=== PATIENT | male | born 1990 | race Caucasian/White ===

== ENCOUNTER 2019-12-22 01:43 | Emergency (ER) | payer SELFPAY ==
[~2019-12-22] VITALS: Ht 180.3 cm; Wt 63.5 kg
[2019-12-22 01:46] VITALS: BP 170/103
--- NOTE | 2019-12-22 01:48 | NUR ---
ED Nurse Note: Patient broughtin by ambulance, RA 61, with complaints of OD. 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 Will continue to monitor for impending orders.
[2019-12-22] MEDS: LORazepam Inj 2mg/ml 1ml IV ONE ×2 (02:17→02:27)
--- NOTE | 2019-12-22 02:27 | NUR ---
ED Nurse Note: Patient refused IV start, will notify ERMD.
[2019-12-22] MEDS ORDERED: LORazepam 1mg tab ORAL ONE (02:45)
--- NOTE | 2019-12-22 03:33 | NUR ---
ED Nurse Note: Patient request clothes, will accomodate request.
--- NOTE | 2019-12-22 04:33 | NUR ---
ED Nurse Note: Patient is sleeping comfortably with no s/s of acute distress. Will continue to monitor for discharge.
--- NOTE | 2019-12-22 05:35 | NUR ---
ED Nurse Note: Patient removed classroom monitor, pulse ox and blood pressure cuff. Cardiac monitoring discontinued.
--- NOTE | 2019-12-22 05:43 | Emergency Room Report ---
History of Present Illness General Chief Complaint: Substance Abuse Source: Patient, EMS Present Illness HPI 29-year-old male presents the ED for overdose. Brought in by EMS from Street. Found with pinpoint pupils. Given Narcan and woke up. Patient found with drug paraphernalia on him including needles. Patient is more alert and oriented now. Admits to crystal meth use. Denies any other drug use. Denies any chest pain or shortness of breath. Denies nausea or vomiting. No other aggravating relieving factors. Denies any other associated symptoms COVID-19 risk:Travel to affect: No Allergies: Coded Allergies: No Known Allergies (Unverified , 12/22/19) Patient History Past Medical History: none Past Surgical History: none Pertinent Family History: none Social History: Reports: drug use; Denies: smoking, alcohol use Immunizations: UTD Reviewed Nursing Documentation: PMH: Agreed; PSxH: Agreed Review of Systems All Other Systems: negative except mentioned in HPI Physical Exam Vital Signs Date Time Temp Pulse Resp B/P (MAP) Pulse Ox O2 Delivery O2 Flow Rate FiO2 12/22/19 01:46 97.2 100 18 170/103 (125) 100 Nasal Cannula 4.0 Sp02 EP Interpretation: reviewed, normal General Appearance: no apparent distress, alert, GCS 15, non-toxic Head: normocephalic, atraumatic Eyes: bilateral eye normal inspection, bilateral eye other - pinpoint pupils ENT: hearing grossly normal, normal pharynx, no angioedema, normal voice Neck: full range of motion, supple/symm/no masses Respiratory: chest non-tender, lungs clear, normal breath sounds, speaking full sentences Cardiovascular #1: regular rate, rhythm, no edema Cardiovascular #2: 2+ carotid (R), 2+ carotid (L), 2+ radial (R), 2+ radial (L) , 2+ dorsalis pedis (R), 2+ dorsalis pedis (L) Gastrointestinal: normal bowel sounds, non tender, soft, non-distended, no guarding, no rebound Rectal: deferred Genitourinary: normal inspection, no CVA tenderness Musculoskeletal: back normal, normal range of motion, gait/station normal, non- tender Neurologic: alert, motor strength/tone normal, oriented x3, sensory intact, responsive, speech normal Psychiatric: judgement/insight normal, memory normal, mood/affect normal, no suicidal/homicidal ideation Reflexes: 3+ bicep (R), 3+ bicep (L), 3+ tricep (R), 3+ tricep (L), 3+ knee (R) , 3+ knee (L) Lymphatic: no adenopathy Medical Decision Making Homeless Attestation I, The treating physician Dr. Reynolds, have assessed and agrees that patient is medically stable for discharge to an outpatient disposition. Diagnostic Impression: Primary Impression: Substance abuse ER Course Hospital Course 29 yo M presents s/p overdose. AAOX3 after narcan Clinical course Patient placed on stretcher. Given that patient is able to provide an adequate history, I see no need to check blood work or place an IV. Patient feels anxious. Given Ativan. Patient allowed to rest. 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 Protecting airway. Vitals stable. Now awake alert oriented x3. Discussed findings with patient will discharge. Homeless checklist completed. Safe for discharge for close outpatient follow-up. Diagnosis -substance absue stable and discharged to home. Followup with PMD. Return to ED if symptoms recur or worsen Last Vital Signs Date Time Temp Pulse Resp B/P (MAP) Pulse Ox O2 Delivery O2 Flow Rate FiO2 12/22/19 01:46 100 18 Nasal Cannula 4.0 12/22/19 01:46 97.2 170/103 100 Status: improved Disposition: HOME, SELF-CARE Condition: Stable Referrals: NOT CHOSEN IPA/,REFERRING (PCP) Manuelito Reynolds MD Dec 22, 2019 05:43
[2019-12-22 07:03] VITALS: BP 170/103
--- NOTE | 2019-12-22 07:03 | NUR ---
ER DISCHARGE NOTE: Patient is cleared to be discharged per ERMD, pt is aox4, on room air, with stable vital signs. pt was given dc and prescription instructions, pt was able to verbalize understanding, pt id band removed. pt is able to ambulate with steady gait. pt took all belongings.
== END 2019-12-22 07:04 | disposition home or self-care (01) ==
LOC: EDBD 01:43 → EMR 02:00
DX: F19.10 Other psychoactive substance abuse, uncomplicated (principal)
CPT/HCPCS: 99281; J7030